=== PATIENT | female | born 1985 ===

== ENCOUNTER 2022-05-25 04:55 | Emergency (ER) | payer OTHER ==
[~2022-05-25] VITALS: Ht 165.1 cm; Wt 95.0 kg
[2022-05-25 05:15] VITALS: BP 114/70
== END 2022-05-25 06:37 | disposition left against medical advice (07) ==
LOC: ER 04:55
DX: K08.89 Other specified disorders of teeth and supporting structures (principal); Z53.21 Procedure and treatment not carried out due to patient leaving prior to being seen by health care provider